=== PATIENT | male | born 1975 | race Caucasian/White ===

== ENCOUNTER → 2017-09-25 | Outpatient (CLI) | payer BC ==
[~2017-09-25] MED LIST: GADAVIST IV PRN; OXYC7.5T65 PO; [UNRECOGNIZED DRUG - OTHER] PO
--- NOTE | 2017-09-25 11:35 | DIAGNOSTIC IMAGING REPORT ---
L LOWER EXT NONJOINT COMBO CLINICAL HISTORY: 41 years-old Male presenting with L FOOT ACHILLES TENDON PAIN. TECHNIQUE: Multisequence, multiplanar MR imaging of the left ankle was performed before and after the administration of intravenous contrast. IV contrast: 9 mL of Gadavist. COMPARISON: Plain radiographs of the left foot from 2009. FINDINGS: Localizer images: Extensive susceptibility artifact arising from fixation hardware in the distal fibula and tibia. This limits diagnostic sensitivity of the exam. Bony edema noted at the posterior calcaneus at the insertion of the Achilles tendon. Fluid distends the retrocalcaneal bursa. Thickening and increased signal intensity of the Achilles tendon at the distal transitional fibers. Extensive infiltration of [place] fat pad. Fixation hardware in the distal tibia and fibula noted, limiting evaluation in this region. Ankle mortise grossly intact. Anterior and peroneal tendons intact. Trace fluid tracks along the tibialis posterior and flexor digitorum longus. An accessory muscle along the posterior lateral aspect of the flexor hallucis longus is consistent with a peroneocalcaneus internus accessory muscle. Anterior talofibular ligament is not visualized and may be disrupted likely on a chronic basis. The posterior talofibular ligament is grossly intact as is the calcaneofibular ligament. Anterior inferior tibiofibular ligament, interosseous membrane, and posterior inferior talofibular ligaments intact. Deltoid ligament grossly intact. No infiltration of the sinus tarsi. Plantar fascia intact. Normal muscle bulk and muscle signal intensity. IMPRESSION: 1. Findings consistent with retrocalcaneal bursitis with tendinosis/tendinitis of the Achilles tendon. No evidence of a complete Achilles tendon tear. 2. Post surgical changes of distal fibular and tibial fixation hardware, which results in degradation of image quality. 3. Tenosynovitis of the tibialis posterior and flexor digitorum longus suggested. 4. Incidental note made of peroneocalcaneus internus accessory muscle. Electronically signed by: Luis Miguel Salgado M.D. 09/25/2017 11:33 AM Dictated Date/Time: 09/25/2017 11:16 AM
== END | disposition home or self-care (01) ==
LOC: C.MRI 09:32
PROVIDERS: ATTEND Podiatrist Foot & Ankle Surgery
DX: M76.62 Achilles tendinitis, left leg (principal); S86.012A Strain of left Achilles tendon, initial encounter; X58.XXXA Exposure to other specified factors, initial encounter

== ENCOUNTER 2018-09-11 23:37 | Inpatient (IN) ==
[2018-09-11] MEDS ORDERED: SODIUM CHLORIDE 0.9% 1000ML 1,000 ML IV SCH (23:45)
[2018-09-11] MEDS ORDERED: ONDANSETRON INJ 2 MG/ML 2 ML VIAL IV STA (23:52)
[2018-09-11] MEDS ORDERED: MoRPHine SULFATE 4 MG/ML 1 ML CARP\\VIAL IV STA (23:52)
[2018-09-11] MEDS ORDERED: KETOROLAC 30 MG/ML VIAL IV STA (23:52)
[2018-09-11 23:58] LABS: Basophils # (auto) 0.03 K/uL (0-0.2); Basophils % (auto) 0.3 %; Eosinophils # (auto) 0.12 K/uL (0-0.5); Eosinophils % (auto) 1.3 %; Hematocrit (blood only) 46.2 % (42-52); Immature Granulocytes # (auto) 0.03 K/uL (0.00-0.02); Immature Granulocytes % (auto) 0.3 %; Lymphocytes # (auto) 1.61 K/uL (1.2-3.4); Lymphocytes % (auto) 17.3 %; Mean Corpuscular Hgb Conc 34.6 g/dL (32-36); Mean Corpuscular Volume 94.3 fL (80-100); Mean Platelet Volume 9.5 fL (7.4-10.4); Monocytes % (auto) 6.4 %; Neutrophils # (auto) 6.92 K/uL (1.4-6.5); Neutrophils % (auto) 74.4 %; Platelet Count 221 K/uL (130-400); RDW Coefficient of Variation 12.9 % (11.5-14.5); RDW Standard Deviation 44.3 fL (36.4-46.3); White Blood Count 9.31 K/uL (4.8-10.8)
[2018-09-12 00:20] LABS: BUN Creatinine Ratio 9.8 (10-20); Calcium 8.7 mg/dl (8.5-10.1); Creatinine Clr Calc Pharmacy 81.5 ml/min; Est GFR (African American) 72.3; Est GFR (Non-African American) 62.4; Potassium 3.6 mmol/L (3.5-5.1)
[2018-09-12 00:23] LABS: Albumin Globulin Ratio 1.1 (0.9-2); Bilirubin,Total 0.5 mg/dl (0.2-1); Globulin 3.7 gm/dl (2.5-4.0); Total Protein 7.7 gm/dl (6.4-8.2)
[2018-09-12 00:28] LABS: Appearance Urine Cloudy (Clear); Bacteria Urine Automated Negative (Negative); Bilirubin Urine Negative (Negative); Color Urine Yellow; Glucose Urine UA Negative (Negative); Ketones Urine Negative (Negative); Leukocyte Esterase Urine Negative (Negative); Nitrite Urine Negative (Negative); Protein Urine Trace (Negative); Specific Gravity Urine 1.023 (1.000-1.030); Urobilinogen Urine Negative (Negative); pH Urine 5.5 (4.5-7.5)
[2018-09-12 00:40] LABS: Calcium Oxalate Crystals Urine Present (None Prsent); Mucus Urine Present (None Prsent)
[2018-09-12 00:41] LABS: Cast Urine Automated 0 /lpf (0-5)
[2018-09-12] MEDS ORDERED: HYDROmorphone INJ 1 MG/ML SYRINGE IV STA (01:12)
[2018-09-12] MEDS ORDERED: SODIUM CHLORIDE 0.9% 1000ML 1,000 ML IV SCH (01:15)
--- NOTE | 2018-09-12 02:34 | History & Physical Report ---
Date of Service September 12, 2018 Assessment & Plan (1) Calculus, ureteral: 8.5mm stone at right UPJ. Patient afebrile, hemodynamically stable, pain moderately well controlled at present. No nausea. He does report some fevers and chills at home -Admit to medical floor -Morphine and Toradol PRN pain -Zofran PRN nausea -NSS at 125mL/hr x 2 liters -Ceftriaxone 1gm IV daily -Strain urine -NPO -Urology consultation - appreciate assistance with this case F/E/N - NSS at 125mL/hr x 2 liters, monitor electrolytes and replete as needed, NPO for now Ppx - ambulation, IVF, patient low risk for DVT Code - Full Dispo - Admit to medical floor History of Present Illness Chief Complaint: Flank pain Primary Care Provider: Dat Manzano III, Mr. 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 Pain started this AM, lower abdomen and right flank as well a right testicular pain. Became more severe this evening associated with nausea and 6-8 episodes of non-bloody/ non-bilious vomiting. Patient reports fevers and chills at home as well as dizziness. Pain is currently well controlled after Toradol, Morphine, Dilaudid. CT obtained in the ER with 8.5mm stone at the right UPJ with moderate hydronephrosis as well as a 3mm stone at UVJ with mild hydroureter. ER Course: Dilaudid 1mg, Toradol 30mg, Morphine 4mg, Zofran 4mg, NSS Allergies Allergy/AdvReac Type Severity Reaction Status Date / Time methotrexate AdvReac Unknown NAUSEA Verified 09/12/18 00:05 VOMITING DIARRHEA Sulfa (Sulfonamide AdvReac Unknown NAUSEA Verified 09/12/18 00:05 Antibiotics) VOMITING Home Medications Home Medications Medication Instructions Recorded Confirmed Type No Known Home Medications 09/12/18 09/12/18 History Past Med/Surg History Medical History Arthritis Surgical History History of arthroplasty of left ankle Family History Other Cancer Diabetes Heart disease Hypertension Kidney stones Social History Current Living Situation: Family Feels Safe at Home: Yes Smoking Status: Never smoker Hx Alcohol Use: No Hx Substance Use: No Communication Ability: Effective Review of Systems All systems reviewed & are unremarkable except as noted in HPI & below +fevers/chills +dizziness +SOB +decreased UOP Physical Exam 2 Vital Signs (Past 24 Hours): Last Vital Signs Temp 36.7 C 09/11/18 23:41 Pulse 56 L 09/12/18 02:15 Resp 18 09/12/18 02:15 BP 152/82 H 09/12/18 02:15 Pulse Ox 96 09/12/18 02:15 Physical Exam: General: patient resting comfortably, NAD, non-toxic in appearance, AA&O x 4 Skin: warm, dry, intact, no rashes or lesions HEENT: NC/AT, PERRL, EOMI, anicteric sclera, conjunctiva without injection, external ear normal to inspection and nontender, nares patent, moist mucus membranes, dentition intact, no oropharyngeal lesions, neck supple, trachea midline, no LAD, no thyromegaly, no JVD Heart: +S1/S2, regular, no m/r/g Lungs: equal air entry bilaterally, no rales/rhonchi/wheezes Abd: +BS, soft, non-distended, tenderness in RLQ and suprapubic region, right flank pain Ext: warm, 2+ pulses in UE/LE bilaterally, no clubbing/cyanosis or edema Neuro: nonfocal, patient AA&O x 4, speech intact, no facial droop, moving all extremities on command with equal strength 5/5 Results & Data Laboratory Results Lab Results 09/11/18 09/11/18 09/11/18 Range/Units 23:50 23:50 23:55 WBC 9.31 (4.8-10.8) K/uL RBC 4.90 (4.7-6.1) M/uL Hgb 16.0 (14.0-18.0) g/dL Hct 46.2 (42-52) % MCV 94.3 (80-100) fL MCH 32.7 (25-34) pg MCHC 34.6 (32-36) g/dL RDW Std Deviation 44.3 (36.4-46.3) fL RDW Coeff of Daryl 12.9 (11.5-14.5) % Plt Count 221 (130-400) K/uL MPV 9.5 (7.4-10.4) fL Immature Gran % (Auto) 0.3 % Neut % (Auto) 74.4 % Lymph % (Auto) 17.3 % [place] % (Auto) 6.4 % Eos % (Auto) 1.3 % Baso % (Auto) 0.3 % Immature Gran # (Auto) 0.03 H (0.00-0.02) K/uL Neut # (Auto) 6.92 H (1.4-6.5) K/uL Lymph # (Auto) 1.61 (1.2-3.4) K/uL [place] # (Auto) 0.60 H (0.11-0.59) K/uL Eos # (Auto) 0.12 (0-0.5) K/uL Baso # (Auto) 0.03 (0-0.2) K/uL Sodium 137 (136-145) mmol/L Potassium 3.6 (3.5-5.1) mmol/L Chloride 102 (98-107) mmol/L Carbon Dioxide 27 (21-32) mmol/L Anion Gap 8.0 (3-11) BUN 14 (7-18) mg/dl Creatinine 1.40 (0.6-1.4) mg/dl Est Cr Clr Drug Dosing 81.5 ml/min Est GFR ( Amer) 72.3 Est GFR (Non-Af Amer) 62.4 BUN/Creatinine Ratio 9.8 L (10-20) Glucose 116 H (70-99) mg/dl Calcium 8.7 (8.5-10.1) mg/dl Total Bilirubin 0.5 (0.2-1) mg/dl AST 25 (15-37) U/L ALT 37 (12-78) U/L Alkaline Phosphatase 85 (45-117) U/L Total Protein 7.7 (6.4-8.2) gm/dl Albumin 4.0 (3.4-5.0) gm/dl Globulin 3.7 (2.5-4.0) gm/dl Albumin/Globulin Ratio 1.1 (0.9-2) Urine Color Yellow Urine Appearance Cloudy H (Clear) Urine pH 5.5 (4.5-7.5) Ur Specific [place] 1.023 (1.000-1.030) Urine Protein Trace H (Negative) Urine Glucose (UA) Negative (Negative) Urine Ketones Negative (Negative) Urine Blood 3+ H (Negative) Urine Nitrite Negative (Negative) Urine Bilirubin Negative (Negative) Urine Urobilinogen Negative (Negative) Ur Leukocyte Esterase Negative (Negative) Urine WBC (Auto) 1-5 (0-5) /hpf Urine RBC (Auto) >30 H (0-4) /hpf U Hyaline Cast (Auto) 0 (0-5) /lpf U Epithel Cells (Auto) 5-10 H (0-5) /lpf Urine Bacteria (Auto) Negative (Negative) Urine Crystals Not Reportable Calcium Oxalate Crystal Present H (None Prsent) Urine Mucus Present H (None Prsent) Diagnostic Findings CT Abdomen - 8.5mm stone at right UPJ with moderate hydronephrosis. 3mm UVJ stone with mild hydroureter Code Status & VTE Plan Code Status FULL VTE Prophylaxis Plan VTE Prophylaxis will be ordered: No Critical Care Time Critical Care Time: No
[2018-09-12] MEDS ORDERED: ACETAMINOPHEN 325 MG TAB PO PRN (03:13)
[2018-09-12] MEDS ORDERED: ONDANSETRON INJ 2 MG/ML 2 ML VIAL IV PRN (03:13)
[2018-09-12] MEDS ORDERED: KETOROLAC TROMETHAMINE 15 MG/ML VIAL IV PRN (03:13)
[2018-09-12] MEDS: MoRPHine SULFATE 4 MG/ML 1 ML CARP\\VIAL IV PRN ×6 (03:27→22:34)
[2018-09-12] MEDS: SODIUM CHLORIDE 0.9% 1000ML 1,000 ML IV SCH ×2 (03:28→12:01)
[2018-09-12] MEDS: cefTRIAXone SODIUM 1,000 MG in SODIUM CHLOR 0.9% AD-VAN 50 ML IV SCH (04:34)
--- NOTE | 2018-09-12 04:52 | Emergency Department Note ---
Entered by Hortencia Christy acting as a scribe for Deb Vicente DO History of Present Illness General Chief complaint: Abdominal Pain Stated complaint: ABDOMEN SWELLING/PAIN,FEVER,CHILLS,VOMITING,CONSTI Time Seen by Provider: 09/11/18 23:44 Source: patient Limitations: no limitations History of Present Illness Onset (ago): hour(s) 2 Location: abdomen (right-sided) Pain Consistency: + constant Maximum Pain Intensity: 10 Quality: + other ("rapid onset") Relieved By: + none Exacerbated By: + none Associated symptoms: + denies other symptoms (lower extremity cramping or swelling), + fever/chills, + nausea/vomiting and + other (testicular pain) The patient is a 42 year old male who presents to the Emergency Room with complaints of "rapid onset," constant right-sided abdominal pain that began 2 hours ago. The patient complains of nausea/vomiting, fevers/chills, and testicular pain. He denies any lower extremity cramping or swelling. The patient notes a family history of kidney stones, stating that his father has had kidney stones in the past. He denies any modifying factors. He reports a past medical history of arthritis. Home Medications Home Medications Medication Instructions Recorded Confirmed Type No Known Home Medications 09/12/18 09/12/18 History Allergies Allergy/AdvReac Type Severity Reaction Status Date / Time methotrexate AdvReac Unknown NAUSEA Verified 09/12/18 00:05 VOMITING DIARRHEA Sulfa (Sulfonamide AdvReac Unknown NAUSEA Verified 09/12/18 00:05 Antibiotics) VOMITING Past Med/Surg History Medical History Arthritis Surgical History History of arthroplasty of left ankle Family History Other Cancer Diabetes Heart disease Hypertension Kidney stones Social History Current Living Situation: Family Other Information That Helps Us Care for You: No Feels Safe at Home: Yes Safety Concerns: Feels Safe At This Time Smoking Status: Current some day smoker Tobacco Type: cigarettes and cigars Do You Dip or Chew Tobacco: No Second Hand Exposure: No Tobacco Cessation Education Requested by Patient: No Hx Alcohol Use: Yes Alcohol type: hard liquor Alcohol Intake Frequency: 0-2 drinks per day Hx Substance Use: No Beliefs That Will Affect Care: None Preferred Language: [place] Communication Ability: Effective Dog Sitter Required: No Review of Systems See HPI for pertinent positives & negatives. and A total of 10 systems reviewed and were otherwise negative Physical Exam Vital Signs Vital Signs - 24 hr 09/11/18 23:41 09/12/18 00:16 09/12/18 01:08 Temperature 36.7 C Temperature Source Oral Sepsis Recent Fever Within 48 Hours No Sepsis Action Taken by Nursing No Action Required Pulse Rate 72 Pulse Rate [Right Brachial] Pulse Rate [Right Finger] 88 65 Pulse Rhythm [Right Brachial] Pulse Rhythm [Right Finger] Pulse Strength [Right Brachial] Pulse Strength [Right Finger] Respiratory Rate 18 18 18 Respiratory Effort / Characteristics Respiratory Depth Respiratory Pattern Blood Pressure 162/121 H Blood Pressure [Right Arm] 137/85 130/72 Blood Pressure Mean 134 Blood Pressure Mean [Right Arm] 102 91 Blood Pressure Position [Right Arm] Pulse Oximetry 97 95 96 Oxygen Delivery Method Room Air Room Air 09/12/18 01:20 09/12/18 02:15 09/12/18 02:55 Temperature Temperature Source Sepsis Recent Fever Within 48 Hours Sepsis Action Taken by Nursing Pulse Rate 53 L Pulse Rate [Right Brachial] Pulse Rate [Right Finger] 59 L 56 L Pulse Rhythm [Right Brachial] Pulse Rhythm [Right Finger] Pulse Strength [Right Brachial] Pulse Strength [Right Finger] Respiratory Rate 18 18 16 Respiratory Effort / Characteristics Respiratory Depth Respiratory Pattern Blood Pressure 147/88 H Blood Pressure [Right Arm] 110/64 152/82 H Blood Pressure Mean Blood Pressure Mean [Right Arm] 79 105 Blood Pressure Position [Right Arm] Pulse Oximetry 96 96 96 Oxygen Delivery Method Room Air Room Air Room Air 09/12/18 03:05 09/12/18 03:36 Temperature 36.5 C 36.5 C Temperature Source Oral Oral Sepsis Recent Fever Within 48 Hours Sepsis Action Taken by Nursing Pulse Rate Pulse Rate [Right Brachial] 59 L Pulse Rate [Right Finger] 58 L Pulse Rhythm [Right Brachial] Regular Pulse Rhythm [Right Finger] Regular Pulse Strength [Right Brachial] Normal Pulse Strength [Right Finger] Normal Respiratory Rate 16 12 Respiratory Effort / Characteristics Non-Labored Spontaneous Respiratory Depth Normal Normal Respiratory Pattern Regular Blood Pressure Blood Pressure [Right Arm] 167/92 H 167/92 H Blood Pressure Mean Blood Pressure Mean [Right Arm] 117 117 Blood Pressure Position [Right Arm] Lying Lying Pulse Oximetry 96 96 Oxygen Delivery Method Room Air Room Air General: Appears uncomfortable. HEENT: Head - normocephalic and atraumatic Pupils are equal, round, and reactive to light. Extraocular eye muscles are intact, and sclera are anicteric. Nose - moist nasal mucosa without discharge. Mouth - moist buccal mucosa. Oropharynx is nonerythematous and there is no tonsillar exudate or edema noted. Neck: Supple; no JVD, nuchal rigidity, cervical lymphadenopathy, or auscultated bruits. Heart: Regular rate and rhythm. There is a normal S1 and S2 with no murmurs, clicks, or gallops appreciated. Lungs: Clear to auscultation bilaterally with no wheezes, rales, or rhonchi. Abdomen: Soft, , nondistended, with good bowel sounds. There are no palpable pulsatile masses or hepatosplenomegaly. There is no guarding, rigidity, or rebound noted. Slight discomfort in the RLQ and suprapubic region of the abdomen with palpation.. Extremities: No evidence of cyanosis, clubbing, or edema. There are easily palpable peripheral pulses. Skin: warm and dry with good turgor and no rashes. Genitals: Slight discomfort with palpation of right testicle. The epididymis feels normal. Slightly enlarged lymph nodes in the right inguinal canal. Course 2348: Past medical records reviewed. The patient was evaluated in room A02, and a complete history and physical examination were performed. An IV lock was initiated and labs were drawn as above. 2352: Morphine Sulfate 4 mg IV, Zofran 4 mg IV, Toradol 30 mg IV. Urine specimen revealed hematuria. The patient will go for CT scan of the abdomen/ pelvis 0112: I checked on the patient. He complained of a lot of pain. I reviewed his results with him. 0112: Dilaudid 1 mg IV 0114: I talked with Dr. Mccauley, [facility] Urology, about the patient�s case. He recommended that the patient be admitted to the hospitalist. 0115: NSS 1000 mls @ 125 mls/hr IV 0204: I checked on the patient. He stated that he is more comfortable and rated his pain as a 4/10. 0126: I spoke with Johanna Holliday, [facility] hospitalist, about the patient�s case. She will further evaluate the patient. 0128: I spoke with the patient and updated him about the plan. Consultations Consultation #1: I talked with Dr. Mccauley, [facility], about the patient�s case. He recommended that the patient be admitted to the hospitalist. Time: 01:14 Consultation #2: I spoke with Johanna Holliday, [facility] hospitalist, about the patient�s case. She will further evaluate the patient. Time: 01:26 Administered Medications Sodium Chloride (Nss 1000ml) 1,000 mls @ 125 mls/hr IV .Q8H [place] Stop: 09/12/18 19:29 Last Admin: 09/12/18 03:28 Dose: 125 mls/hr Ceftriaxone Sodium 1,000 mg/ (Sodium Chloride) 50 mls @ 100 mls/hr IV Q24H [place] ; Protocol Stop: 09/17/18 03:59 Last Admin: 09/12/18 04:34 Dose: 100 mls/hr Morphine Sulfate (Morphine Sulfate) 4 mg IV Q2H PRN PRN Reason: pain Stop: 09/26/18 03:12 Last Admin: 09/12/18 03:27 Dose: 4 mg Ondansetron HCl (Zofran) 4 mg IV Q6H PRN PRN Reason: Nausea Stop: 10/12/18 03:12 Last Admin: 09/12/18 03:27 Dose: 4 mg Discontinued Medications Hydromorphone HCl (Dilaudid) 1 mg IV NOW STA Stop: 09/12/18 01:13 Last Admin: 09/12/18 01:16 Dose: 1 mg Sodium Chloride (Nss 1000ml) 1,000 mls @ 999 mls/hr IV .Q1H1M [place] Stop: 09/12/18 00:45 Last Infusion: 09/12/18 01:07 Dose: 0 mls/hr Admin: 09/12/18 00:02 Dose: 999 mls/hr Sodium Chloride (Nss 1000ml) 1,000 mls @ 125 mls/hr IV .Q8H [place] Stop: 10/12/18 01:14 Last Infusion: 09/12/18 02:16 Dose: 0 mls/hr Admin: 09/12/18 01:17 Dose: 125 mls/hr Ketorolac Tromethamine (Toradol) 30 mg IV NOW STA Stop: 09/11/18 23:53 Last Admin: 09/12/18 00:03 Dose: 30 mg Morphine Sulfate (Morphine Sulfate) 4 mg IV NOW STA Stop: 09/11/18 23:53 Last Admin: 09/12/18 00:03 Dose: 4 mg Ondansetron HCl (Zofran) 4 mg IV NOW STA Stop: 09/11/18 23:53 Last Admin: 09/12/18 00:02 Dose: 4 mg Medical Decision Making Differential Diagnosis The differential diagnosis includes: ureteral colic ,pyelonephritis, obstructive uropathy, testicular torsion, cystitis, and appendicitis Medical Records Attestation: I reviewed the patient's medical records. Home Medications Current Medication List: was personally reviewed by me Laboratory Data Attestation: I reviewed the patient's lab results. Result diagrams: 09/11/18 23:50 09/11/18 23:50 Lab Results 09/11/18 09/11/18 09/11/18 Range/Units 23:50 23:50 23:55 WBC 9.31 (4.8-10.8) K/uL RBC 4.90 (4.7-6.1) M/uL Hgb 16.0 (14.0-18.0) g/dL Hct 46.2 (42-52) % MCV 94.3 (80-100) fL MCH 32.7 (25-34) pg MCHC 34.6 (32-36) g/dL RDW Std Deviation 44.3 (36.4-46.3) fL RDW Coeff of Daryl 12.9 (11.5-14.5) % Plt Count 221 (130-400) K/uL MPV 9.5 (7.4-10.4) fL Immature Gran % (Auto) 0.3 % Neut % (Auto) 74.4 % Lymph % (Auto) 17.3 % [place] % (Auto) 6.4 % Eos % (Auto) 1.3 % Baso % (Auto) 0.3 % Immature Gran # (Auto) 0.03 H (0.00-0.02) K/uL Neut # (Auto) 6.92 H (1.4-6.5) K/uL Lymph # (Auto) 1.61 (1.2-3.4) K/uL [place] # (Auto) 0.60 H (0.11-0.59) K/uL Eos # (Auto) 0.12 (0-0.5) K/uL Baso # (Auto) 0.03 (0-0.2) K/uL Sodium 137 (136-145) mmol/L Potassium 3.6 (3.5-5.1) mmol/L Chloride 102 (98-107) mmol/L Carbon Dioxide 27 (21-32) mmol/L Anion Gap 8.0 (3-11) BUN 14 (7-18) mg/dl Creatinine 1.40 (0.6-1.4) mg/dl Est Cr Clr Drug Dosing 81.5 ml/min Est GFR ( Amer) 72.3 Est GFR (Non-Af Amer) 62.4 BUN/Creatinine Ratio 9.8 L (10-20) Glucose 116 H (70-99) mg/dl Calcium 8.7 (8.5-10.1) mg/dl Total Bilirubin 0.5 (0.2-1) mg/dl AST 25 (15-37) U/L ALT 37 (12-78) U/L Alkaline Phosphatase 85 (45-117) U/L Total Protein 7.7 (6.4-8.2) gm/dl Albumin 4.0 (3.4-5.0) gm/dl Globulin 3.7 (2.5-4.0) gm/dl Albumin/Globulin Ratio 1.1 (0.9-2) Urine Color Yellow Urine Appearance Cloudy H (Clear) Urine pH 5.5 (4.5-7.5) Ur Specific [place] 1.023 (1.000-1.030) Urine Protein Trace H (Negative) Urine Glucose (UA) Negative (Negative) Urine Ketones Negative (Negative) Urine Blood 3+ H (Negative) Urine Nitrite Negative (Negative) Urine Bilirubin Negative (Negative) Urine Urobilinogen Negative (Negative) Ur Leukocyte Esterase Negative (Negative) Urine WBC (Auto) 1-5 (0-5) /hpf Urine RBC (Auto) >30 H (0-4) /hpf U Hyaline Cast (Auto) 0 (0-5) /lpf U Epithel Cells (Auto) 5-10 H (0-5) /lpf Urine Bacteria (Auto) Negative (Negative) Urine Crystals Not Reportable Calcium Oxalate Crystal Present H (None Prsent) Urine Mucus Present H (None Prsent) Imaging Data Radiologist's Impression: Radiology results as stated below per my review and the radiologist's interpretation: CT ABDOMEN AND PELVIS Without Contrast: 8.5 mm stone at the right UPJ with moderate hydronephrosis. 3 mm right UVJ stone with mild hydroureter. Normal appendix. Radiologist: Titus Arriola MD Study ready at 00:52 and initial results at 00:59. Blood Pressure Blood Pressure Findings: Normal blood pressure Blood Pressure Disposition: did not require urgent referral MDM Narrative The patient is a 42 year old male who presents to the Emergency Room with complaints of "rapid onset," constant right-sided abdominal pain that began 2 hours ago. The patient's pain started in the right testicle and now it radiates to the right flank. He is afebrile and has no leukocytosis. Urinalysis it appears to show no signs of infection but does have hematuria. CT scan of the abdomen/ pelvis shows evidence of 2 ureteral stones one measuring 8.5 mm and the second measuring 3 mm. The patient required multiple doses of pain medication for comfort. I discussed the case with urology and internal medicine and they will evaluate for further management. Impression & Plan Calculus, ureteral Discharge Plan Visit Data *Final* Discharge Date/Time: 09/12/18 02:55 Chief Complaint: Abdominal Pain Stated Complaint: ABDOMEN SWELLING/PAIN,FEVER,CHILLS,VOMITING,CONSTI ED Provider: Deb Vicente Discharge Problem: Calculus, ureteral Patient Disposition: Admitted As Inpatient Discharge Instructions Interventions: ED Discharge Assessment Last Done: 09/12/18 02:55 The scribe's documentation has been prepared under my direction and personally reviewed by me in its entirety. I confirm that the note above accurately reflects all work, treatment, procedures, and medical decision making performed by me.
[2018-09-12 07:16] LABS: INR 1.1 (0.9-1.1); Prothrombin Time 10.7 Seconds (9.0-12.0)
--- NOTE | 2018-09-12 07:18 | CT Scan Report ---
ABDOMEN AND PELVIS CT WITHOUT CONTRAST CT DOSE: 928.42 mGy.cm HISTORY: Right flank pain. eval for kidney stone on R; eval R inguinal canal TECHNIQUE: Multiaxial CT images of the abdomen and pelvis were performed without contrast. A dose lo wering technique was utilized adhering to the principles of ALARA. COMPARISON STUDY: Abdomen and pelvis CT 06/02/2010. FINDINGS: The lung bases are clear. The unenhanced liver, spleen, adrenal glands, and pancreas are un remarkable. Normal gallbladder. No retroperitoneal lymphadenopathy. No bowel wall thickening or obstr uction. Normal appendix. Normal left kidney. There is mild right hydronephrosis secondary to an obstr ucting 4 mm stone at the right ureterovesical junction. There is also a 7 mm stone at the right renal pelvis which also be partially obstructing. Mild right perinephric edema. IMPRESSION: Mild right hydroureteronephrosis secondary to a 4 mm obstructing stone at the right ureterovesical ju nction. There is also a 7 mm stone at the right renal pelvis which may also result in partial obstruc tion. Electronically signed by: Humble Amaral M.D. 09/12/2018 7:17 AM
[2018-09-12 07:41] LABS: Calcium 8.2 mg/dl (8.5-10.1); Creatinine Clr Calc Pharmacy 71.4 ml/min; Est GFR (African American) 61.5; Est GFR (Non-African American) 53.1; Potassium 3.9 mmol/L (3.5-5.1)
[2018-09-12] MEDS ORDERED: HydrALAZINE HCL 20 MG/ML VIAL IV PRN (08:19)
--- NOTE | 2018-09-12 08:26 | Urology Consultation ---
Date of Consultation September 12, 2018 Assessment & Plan (1) Calculus, ureteral: 42y M with 4mm R UVJ and 7mm R UPJ stone with mild hydronephrosis, associated with N/V upon presentation. Pain controlled with IV morphine at the present. Some nausea, no vomiting since admission. Cr 1.4 on admission, 1.6 today. (baseline 1.3 in 2014). Discussed case with Dr. Lynch. Expects creatinine to improve with hydration. However, if Cr continues to climb tomorrow he will require ureteral stent. Please avoid NSAIDs Check KUB today Clears, advance as tolerated today. Recheck BMP in am NPO at midnight Continue IVFs and ceftriaxone. Please contact our service promptly if pt becomes febrile >101F, pain or vomiting uncontrolled. KUB: stones not visible, moderate bowel gas. May consider repeat tomorrow. History of Present Illness Reason for Consultation: Ureteral stone Requesting Physician: Ureteral stone Attending Physician: Carlyle Maldonado MD, PhD, [facility] History of Present Illness 42yo M presented to ED with complaints of abdominal pain, n/v x6-[address] abd/pelvis reveals 4mm R UVJ and 7mm R renal pelvic stone with mild hydronephrosis. UA +RBC, no leuks, no bacteria. UC&S not indicated. No leukocytosis, Cr 1.4. 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 Takes protein supplement drink daily, also with "fat burner" pill which may contribute to elevated baseline Cr for his age. Pt sitting up in bed at time of evaluation, does not appear to be toxic or in acute distress. Denies fevers, some chills. Some nausea overnight, no vomiting since admission. Denies gross hematuria, dysuria. Some urgency. Pain controlled with IV morphine. Currently NPO status with sips/chips. This is his first stone, father with Hx of stones. unsure of composition. Previous vasectomy, no other urologic intervention/concerns. Allergies Allergy/AdvReac Type Severity Reaction Status Date / Time methotrexate AdvReac Unknown NAUSEA Verified 09/12/18 00:05 VOMITING DIARRHEA Sulfa (Sulfonamide AdvReac Unknown NAUSEA Verified 09/12/18 00:05 Antibiotics) VOMITING Home Medications Home Medications Medication Instructions Recorded Confirmed Type No Known Home Medications 09/12/18 09/12/18 History Patient History Medical History Arthritis Surgical History History of arthroplasty of left ankle Family History Other Cancer Diabetes Heart disease Hypertension Kidney stones Social History Current Living Situation: Family Other Information That Helps Us Care for You: No Feels Safe at Home: Yes Safety Concerns: Feels Safe At This Time Smoking Status: Current some day smoker Tobacco Type: cigarettes and cigars Do You Dip or Chew Tobacco: No Second Hand Exposure: No Tobacco Cessation Education Requested by Patient: No Hx Alcohol Use: Yes Alcohol type: hard liquor Alcohol Intake Frequency: 0-2 drinks per day Hx Substance Use: No Beliefs That Will Affect Care: None Preferred Language: [place] Communication Ability: Effective Executive Vp Required: No Review of Systems Constitutional: no fever, no chills and no fatigue Physical Exam 2 Vital Signs (Past 24 Hours): Last Vital Signs Temp 36.8 C 09/12/18 07:05 Pulse 55 L 09/12/18 07:05 Resp 16 09/12/18 07:05 BP 149/92 H 09/12/18 07:05 Pulse Ox 94 09/12/18 07:05 Constitutional: well developed and well nourished; no acute distress Eyes: no nystagmus ENMT: Ears: no hearing impairment Neck: trachea midline Respiratory: no respiratory distress, no labored breathing and does not use accessory muscles Cardiovascular: Vessels: no JVD Gastrointestinal (Abdomen): Inspection/Auscultation: abdomen not distended and no abdominal edema Percussion/Palpation: no guarding Musculoskeletal: Head/Neck/Chest: normocephalic Skin: no rashes, warm and dry Neurologic: awake; not confused and not obtunded Psychiatric: Orientation: alert and oriented x 3 Results & Data Laboratory Results Laboratory Results - last 48 hr 09/11/18 09/11/18 09/11/18 23:50 23:50 23:55 WBC 9.31 RBC 4.90 Hgb 16.0 Hct 46.2 MCV 94.3 MCH 32.7 MCHC 34.6 RDW Std Deviation 44.3 RDW Coeff of Daryl 12.9 Plt Count 221 MPV 9.5 Immature Gran % (Auto) 0.3 Neut % (Auto) 74.4 Lymph % (Auto) 17.3 [place] % (Auto) 6.4 Eos % (Auto) 1.3 Baso % (Auto) 0.3 Immature Gran # (Auto) 0.03 H Neut # (Auto) 6.92 H Lymph # (Auto) 1.61 [place] # (Auto) 0.60 H Eos # (Auto) 0.12 Baso # (Auto) 0.03 PT INR Sodium 137 Potassium 3.6 Chloride 102 Carbon Dioxide 27 Anion Gap 8.0 BUN 14 Creatinine 1.40 Est Cr Clr Drug Dosing 81.5 Est GFR ( Amer) 72.3 Est GFR (Non-Af Amer) 62.4 BUN/Creatinine Ratio 9.8 L Glucose 116 H Calcium 8.7 Total Bilirubin 0.5 AST 25 ALT 37 Alkaline Phosphatase 85 Total Protein 7.7 Albumin 4.0 Globulin 3.7 Albumin/Globulin Ratio 1.1 Urine Color Yellow Urine Appearance Cloudy H Urine pH 5.5 Ur Specific [place] 1.023 Urine Protein Trace H Urine Glucose (UA) Negative Urine Ketones Negative Urine Blood 3+ H Urine Nitrite Negative Urine Bilirubin Negative Urine Urobilinogen Negative Ur Leukocyte Esterase Negative Urine WBC (Auto) 1-5 Urine RBC (Auto) >30 H U Hyaline Cast (Auto) 0 U Epithel Cells (Auto) 5-10 H Urine Bacteria (Auto) Negative Urine Crystals Not Reportable Calcium Oxalate Crystal Present H Urine Mucus Present H 09/12/18 09/12/18 06:47 06:47 WBC RBC Hgb Hct MCV MCH MCHC RDW Std Deviation RDW Coeff of Daryl Plt Count MPV Immature Gran % (Auto) Neut % (Auto) Lymph % (Auto) [place] % (Auto) Eos % (Auto) Baso % (Auto) Immature Gran # (Auto) Neut # (Auto) Lymph # (Auto) [place] # (Auto) Eos # (Auto) Baso # (Auto) PT 10.7 INR 1.1 Sodium 135 L Potassium 3.9 Chloride 104 Carbon Dioxide 26 Anion Gap 5.0 BUN 16 Creatinine 1.60 H Est Cr Clr Drug Dosing 71.4 Est GFR ( Amer) 61.5 Est GFR (Non-Af Amer) 53.1 BUN/Creatinine Ratio 10.0 Glucose 100 H Calcium 8.2 L Total Bilirubin AST ALT Alkaline Phosphatase Total Protein Albumin Globulin Albumin/Globulin Ratio Urine Color Urine Appearance Urine pH Ur Specific [place] Urine Protein Urine Glucose (UA) Urine Ketones Urine Blood Urine Nitrite Urine Bilirubin Urine Urobilinogen Ur Leukocyte Esterase Urine WBC (Auto) Urine RBC (Auto) U Hyaline Cast (Auto) U Epithel Cells (Auto) Urine Bacteria (Auto) Urine Crystals Calcium Oxalate Crystal Urine Mucus
--- NOTE | 2018-09-12 10:07 | XRay Report ---
XR KUB CLINICAL HISTORY: R UVJ and UPJ stone COMPARISON STUDY: CT scan dated 09/12/2018 FINDINGS: The renal shadows are largely obscured by overlying bowel gas and fecal material. The right UPJ calculus and right UVJ calculus described in the recent CT scan are not visible on conventional radiographic imaging. IMPRESSION: 1. No evidence of pathologic bowel dilatation 2. The right UPJ and right UVJ calculi described on the CT scan performed the same day are not visibl e on conventional radiographic imaging Electronically signed by: Obdulio Toth M.D. 09/12/2018 10:05 AM
[2018-09-12] MEDS ORDERED: SODIUM CHLORIDE 0.9% 1000ML 500 ML IV ONE (12:39)
--- NOTE | 2018-09-12 15:47 | Hospitalist Progress Note ---
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 Continue IV fluid, pain control, continue antibiotics, discussed with urology service, may need OR if patient has spiking fever, however otherwise planning for tomorrow for cystoscopy and stent if needed Possible AK I on CKD with elevated creatinine 1.6 from 1.4, will continue follow -up Ppx DVT , low risk for DVT, SCD while in bed, encourage up and walk and activity , Code - Full Subjective Generally doing okay, no fever today, however last night prior to admission was having fever Reported significant left upper quadrant deep tenderness, denies nausea vomiting , denies dysuria urgency and frequency Review of Systems Constitutional: Mild positive weakness, or fatigue Respiratory: no cough, sputum, wheezing, or dyspnea on exertion Cardiac: No chest pain, No orthopnea, No PND, No claudication, No palpitations , Abdomen: see HPI , No nausea, No vomiting, No diarrhea, No constipation, No GI bleeding Musculoskeletal: No joint pain, No muscle pain, No swelling, No calf pain, No problem reported : No dysuria, No urinary frequency, No incontinence, No hematuria Neurologic: No paralysis, No weakness, No numbness/tingling, No vertigo, No balance problems Psychiatric: No depression symptoms, No anhedonism, No anxiety, No insomnia, No substance abuse Heme: No abnormal bleeding/bruising, No clotting problems, No swollen lymph nodes, No night sweats Skin: No rash, No itch, No new/changing skin lesions, No color change, No bleeding Physical Exam 2 Vital Signs (Past 24 Hours): Last Vital Signs Temp 36.5 C 09/12/18 15:23 Pulse 51 L 09/12/18 15:23 Resp 18 09/12/18 15:23 BP 125/75 09/12/18 15:23 Pulse Ox 95 09/12/18 15:23 Physical Exam: General Appearance: WD/WN, no apparent distress, Eyes: normal inspection, PERRL, EOMI, sclerae normal ENT: normal ENT inspection, hearing grossly normal, pharynx normal Neck: supple, no adenopathy, thyroid normal, no JVD, no carotid bruits, trachea midline Respiratory/Chest: chest non-tender, normal breath sounds, no respiratory distress, no accessory muscle use, breath sounds, rales, wheezing Cardiovascular: regular rate, rhythm, no JVD, no murmur Abdomen: normal bowel sounds, Right CVA TD, soft, no organomegaly, Extremities: normal range of motion, non-tender, normal inspection, no pedal edema, no calf tenderness, normal capillary refill , pelvis stable, joint has no limited range of motion, capillary refill is normal, no cyanosis clubbing Neurologic/Psychiatric: miller helper distillery II-XII nml as tested, no motor/sensory deficits, alert, normal mood/affect, oriented x 3 Skin: normal color, warm/dry, no rash Lymphatic: no adenopathy
[2018-09-13] MEDS: MoRPHine SULFATE 4 MG/ML 1 ML CARP\\VIAL IV PRN ×4 (04:31→16:15)
[2018-09-13] MEDS: cefTRIAXone SODIUM 1,000 MG in SODIUM CHLOR 0.9% AD-VAN 50 ML IV SCH (04:31)
[2018-09-13 07:44] LABS: Basophils # (auto) 0.02 K/uL (0-0.2); Basophils % (auto) 0.2 %; Eosinophils # (auto) 0.19 K/uL (0-0.5); Hematocrit (blood only) 41.3 % (42-52); Hemoglobin 13.7 g/dL (14.0-18.0); Immature Granulocytes # (auto) 0.02 K/uL (0.00-0.02); Immature Granulocytes % (auto) 0.2 %; Lymphocytes # (auto) 1.62 K/uL (1.2-3.4); Mean Corpuscular Hgb Conc 33.2 g/dL (32-36); Mean Corpuscular Volume 97.2 fL (80-100); Mean Platelet Volume 9.7 fL (7.4-10.4); Monocytes # (auto) 0.77 K/uL (0.11-0.59); Monocytes % (auto) 8.1 %; Neutrophils % (auto) 72.5 %; Platelet Count 166 K/uL (130-400); RDW Standard Deviation 46.1 fL (36.4-46.3); Red Blood Count 4.25 M/uL (4.7-6.1); White Blood Count 9.52 K/uL (4.8-10.8)
[2018-09-13 08:22] LABS: BUN Creatinine Ratio 8.2 (10-20); Calcium 8.3 mg/dl (8.5-10.1); Creatinine Clr Calc Pharmacy 85.2 ml/min; Est GFR (African American) 76.3; Est GFR (Non-African American) 65.8; Magnesium 1.9 mg/dl (1.8-2.4); Phosphorus 2.9 mg/dl (2.5-4.9)
--- NOTE | 2018-09-13 13:38 | Urology Progress Note ---
Date of Service September 13, 2018 Assessment & Plan (1) Calculus, ureteral: Discussed options with patient, mother and son. Patient is hesitant to go home given his continued need for IV pain control. Given persistent renal colic requiring IV pain control x >24 hours in the setting of 7mm R UPJ and 4mm R UVJ, pt would like to proceed with R ureteral stent placement. Presently patient is not a candidate for ESWL as his stones are not visible on KUB. Will proceed to OR with Dr. Mccauley or Dr. Lynch for cysto, Right RPG, stent placement, possible ureteroscopy, laser litho, stone basketing depending on findings. Risks and benefits reviewed with patient OR notified. Surgery today. Will cover with IV Ciprofloxacin preop. Please see additional comments per my attending as indicated. Subjective 42y M with 4mm R UVJ and 7mm R UPJ stone with mild hydronephrosis, associated with N/V upon presentation. Pt continues to require IV morphine every 4 hours around the clock for pain control. Describes as deep, wrapping around R flank. Nausea controlled. VS stable, afebrile. Cr stablized today, 1. 34 (improved from 1.6) Denies difficulty urinating, dysuria or hematuria. Denies passage of any stones, continues to strain. Mother and son at bedside. Review of Systems All systems reviewed & are unremarkable except as noted in HPI & below Physical Exam 2 Vital Signs (Past 24 Hours): Last Vital Signs Temp 36.9 C 09/13/18 07:48 Pulse 71 09/13/18 07:48 Resp 18 09/13/18 07:48 BP 123/71 09/13/18 07:48 Pulse Ox 94 09/13/18 07:48 Physical Exam: A&0X3 RRR, BBS clear CV: no JVD, rate regular Abd soft, nontender Results & Data Laboratory Results Laboratory Results - last 48 hr 09/11/18 09/11/18 09/11/18 23:50 23:50 23:55 WBC 9.31 RBC 4.90 Hgb 16.0 Hct 46.2 MCV 94.3 MCH 32.7 MCHC 34.6 RDW Std Deviation 44.3 RDW Coeff of Daryl 12.9 Plt Count 221 MPV 9.5 Immature Gran % (Auto) 0.3 Neut % (Auto) 74.4 Lymph % (Auto) 17.3 [place] % (Auto) 6.4 Eos % (Auto) 1.3 Baso % (Auto) 0.3 Immature Gran # (Auto) 0.03 H Neut # (Auto) 6.92 H Lymph # (Auto) 1.61 [place] # (Auto) 0.60 H Eos # (Auto) 0.12 Baso # (Auto) 0.03 PT INR Sodium 137 Potassium 3.6 Chloride 102 Carbon Dioxide 27 Anion Gap 8.0 BUN 14 Creatinine 1.40 Est Cr Clr Drug Dosing 81.5 Est GFR ( Amer) 72.3 Est GFR (Non-Af Amer) 62.4 BUN/Creatinine Ratio 9.8 L Glucose 116 H Calcium 8.7 Phosphorus Magnesium Total Bilirubin 0.5 AST 25 ALT 37 Alkaline Phosphatase 85 Total Protein 7.7 Albumin 4.0 Globulin 3.7 Albumin/Globulin Ratio 1.1 Urine Color Yellow Urine Appearance Cloudy H Urine pH 5.5 Ur Specific [place] 1.023 Urine Protein Trace H Urine Glucose (UA) Negative Urine Ketones Negative Urine Blood 3+ H Urine Nitrite Negative Urine Bilirubin Negative Urine Urobilinogen Negative Ur Leukocyte Esterase Negative Urine WBC (Auto) 1-5 Urine RBC (Auto) >30 H U Hyaline Cast (Auto) 0 U Epithel Cells (Auto) 5-10 H Urine Bacteria (Auto) Negative Urine Crystals Not Reportable Calcium Oxalate Crystal Present H Urine Mucus Present H 09/12/18 09/12/18 09/13/18 06:47 06:47 07:14 WBC 9.52 RBC 4.25 L Hgb 13.7 L Hct 41.3 L MCV 97.2 MCH 32.2 MCHC 33.2 RDW Std Deviation 46.1 RDW Coeff of Daryl 13.0 Plt Count 166 MPV 9.7 Immature Gran % (Auto) 0.2 Neut % (Auto) 72.5 Lymph % (Auto) 17.0 [place] % (Auto) 8.1 Eos % (Auto) 2.0 Baso % (Auto) 0.2 Immature Gran # (Auto) 0.02 Neut # (Auto) 6.90 H Lymph # (Auto) 1.62 [place] # (Auto) 0.77 H Eos # (Auto) 0.19 Baso # (Auto) 0.02 PT 10.7 INR 1.1 Sodium 135 L Potassium 3.9 Chloride 104 Carbon Dioxide 26 Anion Gap 5.0 BUN 16 Creatinine 1.60 H Est Cr Clr Drug Dosing 71.4 Est GFR ( Amer) 61.5 Est GFR (Non-Af Amer) 53.1 BUN/Creatinine Ratio 10.0 Glucose 100 H Calcium 8.2 L Phosphorus Magnesium Total Bilirubin AST ALT Alkaline Phosphatase Total Protein Albumin Globulin Albumin/Globulin Ratio Urine Color Urine Appearance Urine pH Ur Specific [place] Urine Protein Urine Glucose (UA) Urine Ketones Urine Blood Urine Nitrite Urine Bilirubin Urine Urobilinogen Ur Leukocyte Esterase Urine WBC (Auto) Urine RBC (Auto) U Hyaline Cast (Auto) U Epithel Cells (Auto) Urine Bacteria (Auto) Urine Crystals Calcium Oxalate Crystal Urine Mucus 09/13/18 07:14 WBC RBC Hgb Hct MCV MCH MCHC RDW Std Deviation RDW Coeff of Daryl Plt Count MPV Immature Gran % (Auto) Neut % (Auto) Lymph % (Auto) [place] % (Auto) Eos % (Auto) Baso % (Auto) Immature Gran # (Auto) Neut # (Auto) Lymph # (Auto) [place] # (Auto) Eos # (Auto) Baso # (Auto) PT INR Sodium 138 Potassium 4.0 Chloride 104 Carbon Dioxide 27 Anion Gap 7.0 BUN 11 Creatinine 1.34 Est Cr Clr Drug Dosing 85.2 Est GFR ( Amer) 76.3 Est GFR (Non-Af Amer) 65.8 BUN/Creatinine Ratio 8.2 L Glucose 91 Calcium 8.3 L Phosphorus 2.9 Magnesium 1.9 Total Bilirubin AST ALT Alkaline Phosphatase Total Protein Albumin Globulin Albumin/Globulin Ratio Urine Color Urine Appearance Urine pH Ur Specific [place] Urine Protein Urine Glucose (UA) Urine Ketones Urine Blood Urine Nitrite Urine Bilirubin Urine Urobilinogen Ur Leukocyte Esterase Urine WBC (Auto) Urine RBC (Auto) U Hyaline Cast (Auto) U Epithel Cells (Auto) Urine Bacteria (Auto) Urine Crystals Calcium Oxalate Crystal Urine Mucus
[2018-09-13] MEDS ORDERED: CIPROFLOXACIN 400 MG/200 ML BAG IV SCH (14:00)
--- NOTE | 2018-09-13 14:15 | XRay Report ---
XR chest 1V portable CLINICAL HISTORY: preop preoperative evaluation COMPARISON STUDY: No previous studies for comparison. FINDINGS: Mild cardia megaly. Diaphragms are smooth. Lungs are considered clear. IMPRESSION: Mild cardiomegaly. Otherwise negative study. The above report was generated using voice recognition software. It may contain grammatical, syntax or spelling errors. Electronically signed by: Levon Reddy M.D. 09/13/2018 2:14 PM
--- NOTE | 2018-09-13 14:40 | Anesthesiology Consultation ---
Date of Service September 13, 2018 Assessment & Plan Chart Review Chart Review: Acceptable Risk for Surgery and Patient NOT seen in Pre Admission Testing Consults Requested none ASA [id number] Proposed Anesthesia Anesthesia Type: General Risk / Benefits Reviewed With: PT / POA / Parent / Guardian, Accepts Plan and Informed Consent Obtained Additional Comments: Pt denies any recent CP, SOB, GERD syptoms, n/v or recent lung infections. NPO Date Last Intake of Fluids: 09/12/18 Time Last Intake of Fluids: 23:00 Date Last Intake of Solids: 09/11/18 Time Last Intake of Solids: 17:30 History Surgery Operation Date: 09/13/18 17:00 Proposed Procedures p Cystoscopy Retrograde Pyelogram, Right Ureteral Stent Placement, Possible Uteroscopy, Possible Laser Lithotripsy, Possible Stone Basket Retrieval - Nehemias Mccauley MD Height/Weight Height: 1.88 m Weight: 94.2 kg Allergies Allergy/AdvReac Type Severity Reaction Status Date / Time methotrexate AdvReac Unknown NAUSEA Verified 09/12/18 00:05 VOMITING DIARRHEA Sulfa (Sulfonamide AdvReac Unknown NAUSEA Verified 09/12/18 00:05 Antibiotics) VOMITING Medications Home Medications Medication Instructions Recorded Confirmed Last Taken No Known Home Medications 09/12/18 09/12/18 Unknown Active Medications Generic Name Dose Route Start Last Admin Trade Name Freq PRN Reason Stop Dose Admin Ceftriaxone Sodium 1,000 mg/ 50 mls @ 100 mls/hr 09/12/18 04:00 09/13/18 05: 31 Sodium Chloride IV 09/17/18 03:59 Infused Q24H [place] Infusion Protocol Morphine Sulfate 4 mg 09/12/18 03:13 09/13/18 16:15 Morphine Sulfate IV 09/26/18 03:12 4 mg Q2H PRN Administration pain Ondansetron HCl 4 mg 09/12/18 03:13 09/12/18 03:27 Zofran IV 10/12/18 03:12 4 mg Q6H PRN Administration Nausea Past Medical History Medical History Arthritis Takes prednisone prn. Last use was about a month ago Past Family History Family History Other Cancer Diabetes Heart disease Hypertension Kidney stones Past Surgical History Surgical History History of arthroplasty of left ankle S/P rhinoplasty Past Anesthesia History No Hx of Anesthesia Complications History of PONV No Motion Sickness Screening History of Motion Sickness: No Social History Smoking Status: Current some day smoker tobacco type: cigars (On occasions) Do You Dip or Chew Tobacco: No Hx Alcohol Use: Yes Alcohol type: hard liquor alcohol intake frequency: 0-2 drinks per day Alcohol Intake Frequency Comment: Vodka Hx Substance Use: No substance use type: does not use Exercise / Class Metabolic Activity II 4-5 Yardwork/Stairs/Walk up hill Physical Exam Vital Signs Last Vital Signs Temp 37 C 09/13/18 15:14 Pulse 76 09/13/18 15:14 Resp 16 09/13/18 15:14 BP 127/74 09/13/18 15:14 Pulse Ox 97 09/13/18 15:14 ENMT Mouth: no TMJ abnormality and no TMJ clicking Thyromental Distance: > or= 3.5 Finger Breadths Mallampati Class: II Neck normal visual inspection; neck extension not limited Respiratory Auscultation: lungs clear to auscultation bilaterally Cardiovascular Rate/Rhythm: regular rate and regular rhythm Psychiatric Orientation: alert and oriented x 3 Testing Electrocardiogram Date: 09/13/18 Findings: + NSR @ (64) Chest X-Ray Date: 09/13/18 Findings: + NAD and + cardiomegaly (Mild) Laboratory Results 09/13/18 07:14 09/13/18 07:14 PT 10.7 Seconds (9.0-12.0) 09/12/18 06:47 INR 1.1 (0.9-1.1) 09/12/18 06:47 Urine Color Yellow 09/11/18 23:55 Urine Appearance Cloudy (Clear) H 09/11/18 23:55 Urine pH 5.5 (4.5-7.5) 09/11/18 23:55 Ur Specific [place] 1.023 (1.000-1.030) 09/11/18 23:55 Urine Protein Trace (Negative) H 09/11/18 23:55 Urine Glucose (UA) Negative (Negative) 09/11/18 23:55 Urine Ketones Negative (Negative) 09/11/18 23:55 Urine Nitrite Negative (Negative) 09/11/18 23:55 Ur Leukocyte Esterase Negative (Negative) 09/11/18 23:55 Urine WBC (Auto) 1-5 /hpf (0-5) 09/11/18 23:55 Urine RBC (Auto) >30 /hpf (0-4) H 09/11/18 23:55 U Hyaline Cast (Auto) 0 /lpf (0-5) 09/11/18 23:55 U Epithel Cells (Auto) 5-10 /lpf (0-5) H 09/11/18 23:55 Urine Bacteria (Auto) Negative (Negative) 09/11/18 23:55
--- NOTE | 2018-09-13 14:57 | Hospitalist Progress Note ---
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 Has been on IV fluid, pain control, continue antibiotics, discussed with urology service, they may plan procedure today Possible ABRIL on CKD with elevated creatinine 1.6 from 1.4, today's creatinine is improved, Ppx DVT , low risk for DVT, SCD while in bed, encourage up and walk and activity , Code - Full Subjective Generally doing okay, no fever today, no abd pain, denies nausea vomiting , denies dysuria urgency and frequency Review of Systems Constitutional: Mild positive weakness, or fatigue Respiratory: no cough, sputum, wheezing, or dyspnea on exertion Cardiac: No chest pain, No orthopnea, No PND, No claudication, No palpitations , Abdomen: see HPI , No nausea, No vomiting, No diarrhea, No constipation, No GI bleeding Musculoskeletal: No joint pain, No muscle pain, No swelling, No calf pain, No problem reported : No dysuria, No urinary frequency, No incontinence, No hematuria Neurologic: No paralysis, No weakness, No numbness/tingling, No vertigo, No balance problems Psychiatric: No depression symptoms, No anhedonism, No anxiety, No insomnia, No substance abuse Heme: No abnormal bleeding/bruising, No clotting problems, No swollen lymph nodes, No night sweats Skin: No rash, No itch, No new/changing skin lesions, No color change, No bleeding Physical Exam 2 Vital Signs (Past 24 Hours): Last Vital Signs Temp 36.9 C 09/13/18 07:48 Pulse 71 09/13/18 07:48 Resp 18 09/13/18 07:48 BP 123/71 09/13/18 07:48 Pulse Ox 94 09/13/18 07:48 Physical Exam: General Appearance: WD/WN, no apparent distress, Eyes: normal inspection, PERRL, EOMI, sclerae normal ENT: normal ENT inspection, hearing grossly normal, pharynx normal Neck: supple, no adenopathy, thyroid normal, no JVD, no carotid bruits, trachea midline Respiratory/Chest: chest non-tender, normal breath sounds, no respiratory distress, no accessory muscle use, breath sounds, rales, wheezing Cardiovascular: regular rate, rhythm, no JVD, no murmur Abdomen: normal bowel sounds, Right CVA mild TD, soft, no organomegaly, Extremities: normal range of motion, non-tender, normal inspection, no pedal edema, no calf tenderness, normal capillary refill , pelvis stable, joint has no limited range of motion, capillary refill is normal, no cyanosis clubbing Neurologic/Psychiatric: bell ringer II-XII nml as tested, no motor/sensory deficits, alert, normal mood/affect, oriented x 3 Skin: normal color, warm/dry, no rash Lymphatic: no adenopathy Results & Data Laboratory Results Laboratory Results - last 24 hr 09/13/18 09/13/18 07:14 07:14 WBC 9.52 RBC 4.25 L Hgb 13.7 L Hct 41.3 L MCV 97.2 MCH 32.2 MCHC 33.2 RDW Std Deviation 46.1 RDW Coeff of Daryl 13.0 Plt Count 166 MPV 9.7 Immature Gran % (Auto) 0.2 Neut % (Auto) 72.5 Lymph % (Auto) 17.0 [place] % (Auto) 8.1 Eos % (Auto) 2.0 Baso % (Auto) 0.2 Immature Gran # (Auto) 0.02 Neut # (Auto) 6.90 H Lymph # (Auto) 1.62 [place] # (Auto) 0.77 H Eos # (Auto) 0.19 Baso # (Auto) 0.02 Sodium 138 Potassium 4.0 Chloride 104 Carbon Dioxide 27 Anion Gap 7.0 BUN 11 Creatinine 1.34 Est Cr Clr Drug Dosing 85.2 Est GFR ( Amer) 76.3 Est GFR (Non-Af Amer) 65.8 BUN/Creatinine Ratio 8.2 L Glucose 91 Calcium 8.3 L Phosphorus 2.9 Magnesium 1.9
[2018-09-13] MEDS ORDERED: PROPOFOL IV EMULSION 10 MG/ML 20 ML VIAL IV ONE (18:20)
[2018-09-13] MEDS ORDERED: MIDAZOLAM HCL 1 MG/ML 2ML VIAL ONE (18:22)
[2018-09-13] MEDS ORDERED: fentaNYL citrate 100 MCG/2 ML VIAL ONE ×2 (18:22→19:21)
--- NOTE | 2018-09-13 18:26 | History & Physical Bridge Note ---
Date of Service September 13, 2018 History & Physical Bridge Note I have examined the patient, reviewed the History & Physical and in the interval since the performance of the History & Physical I have noted the following changes of clinical significance: no changes noted
[2018-09-13] MEDS ORDERED: IOTHALAMATE MEGLUMINE II 17.2% 250 ML VIAL ONE (18:31)
[2018-09-13] MEDS ORDERED: DEXAMETHASONE SOD INJ 4 MG/ML VIAL ONE (18:45)
[2018-09-13] MEDS ORDERED: ONDANSETRON INJ 2 MG/ML 2 ML VIAL ONE (18:45)
[2018-09-13] MEDS ORDERED: LIDOCAINE HCL 2% 2 ML VIAL/AMP(20MG/ML) INFIL ONE ×2 (18:51→19:00)
--- NOTE | 2018-09-13 19:35 | Post Operative Brief Note ---
Immediate Post Op Note v1 Date of Surgery September 13, 2018 Pre & Post Diagnosis Operation Date: 09/13/18 17:00 Pre-Op Diagnosis: Right Ureteral Stones Post-Op Diagnosis: Right Ureteral Stones Procedure Operation Date: 09/13/18 17:00 Actual Procedures p Cystoscopy, Right Flexible Ureteroscopy, Laser Lithotripsy, Right Ureteral Stent Placement(Right) - Nehemias Mccauley MD Surgeon Nehemias Mccauley MD Vinyl Cutter none Estimated Blood Loss 5 Findings See Below (fragile stone fragnmented w scope place ment at right uvj, stone proximally migrated to lower pole and fragile broke into 5 to 6 pieces)
[2018-09-13] MEDS ORDERED: MAGNESIUM HYDROXIDE SUSP 30 ML UDC PO ONE (19:39)
--- NOTE | 2018-09-13 19:50 | Fluoroscopy Report ---
FL KUB HISTORY: R CYSTO/LASER/STENT FLUOROSCOPY TIME: 23 seconds. FINDINGS: 4 fluoroscopic spot images were submitted for review. Images demonstrate a guidewire and li thotripsy extending into the right renal pelvis placed in a retrograde fashion. This is followed by p lacement of a right ureteral stent which appears in good position. IMPRESSION: Fluoroscopy provided for right ureteral stent placement which appears in good position. Electronically signed by: Humble Amaral M.D. 09/13/2018 7:48 PM
[2018-09-13] MEDS ORDERED: ATROPINE SULFATE 0.1 MG/ML 10ML SYR IV PRN (19:52)
[2018-09-13] MEDS ORDERED: ONDANSETRON INJ 2 MG/ML 2 ML VIAL IV PRN (19:52)
[2018-09-13] MEDS ORDERED: ePHEDrine sulfate 50 MG/ML AMP IV PRN (19:52)
[2018-09-13] MEDS ORDERED: fentaNYL citrate 100 MCG/2 ML VIAL IV PRN (19:52)
[2018-09-13] MEDS ORDERED: KETOROLAC 30 MG/ML VIAL IV ONE (19:53)
[2018-09-13] MEDS ORDERED: KETOROLAC 30 MG/ML VIAL ONE (19:56)
--- NOTE | 2018-09-13 20:20 | Anesthesiology Progress Note ---
Date of Service September 13, 2018 Anesthesia Post Procedure Vital Signs Vital Signs: Temp Pulse Pulse Resp BP BP Pulse Ox 09/13/18 20:14 58 L 16 121/62 93 09/13/18 20:05 68 18 115/64 95 09/13/18 19:55 56 L 14 107/62 99 09/13/18 19:46 36.3 C L 57 L 14 122/57 L 99 09/13/18 15:14 37 C 76 16 127/74 97 09/13/18 07:48 36.9 C 71 18 123/71 94 Pain Intensity Right Abdomen: Pain Intensity: 6 Notes Mental Status: alert / awake / arousable Patient Amnestic to Procedure: Yes Nausea / Vomiting: adequately controlled Pain: adequately controlled Airway Patency, RR, SpO2: stable & adequate BP & HR: stable & adequate Hydration State: stable & adequate Anesthetic Complications: no major complications apparent
[2018-09-13] MEDS: DOCUSATE SODIUM 100 MG CAP PO SCH (21:56)
--- NOTE | 2018-09-13 22:58 | Operative Report ---
DATE OF OPERATION: 09/13/2018 PREOPERATIVE DIAGNOSES: Distal ureteral stone and proximal ureteral stone. POSTOPERATIVE DIAGNOSES: Distal ureteral stone and proximal ureteral stone. PROCEDURE PERFORMED: Right ureteroscopy, laser lithotripsy, and right stent placement. PRESENTATION: The patient is a 42-year-old male with ongoing right-sided pain. The patient presents having had several days of pain, requiring narcotics and causing some constipation for possible stent placement and possible ureteroscopy. Because the stones were difficult to see on KUB, there was some concern about placing a stent that he would not be a good candidate for lithotripsy. So I told him I would attempt to do ureteroscopy if it was uncomplicated given the late hour and the possible difficulty of proximal ureteroscopy. The patient understood and we proceeded. DESCRIPTION OF THE PROCEDURE: The patient was taken to cystoscopy suite where general anesthesia was administered, was given Venodyne stockings, have been given preoperative antibiotics, placed in dorsal lithotomy position after general anesthesia had been administered and prepped and draped in usual sterile fashion. A 21-Ghanaian scope was passed per urethra. I was able to pass a Dual-Flex guidewire beyond those stones into the proximal ureter under fluoroscopy. The distal ureter clearly was edematous and there was no urine coming out of it. I was able to pass the semi-rigid ureteroscope into the distal ureter and it appeared that in passing it I must have fragmented the stone, because I did not see a fragment, but then it disappeared from view. After I removed the scope, I took a picture of the distal ureter and then went back into the ureter which had been relatively dilated because of the obstruction distally and went up into the UVJ. The proximal stone had obviously migrated back up into the kidney. Because of this, I removed the ureteroscope and passed a second guidewire through the ureteroscope prior to removing it completely into the proximal ureter under fluoroscopy and then I passed a digital flexible ureteroscope into the ureter. I found the stone in the lower pole of the kidney, which was somewhat difficult to get to, but I was able to get to it with a 200 micron fiber and fragmented into multiple pieces, but the pieces flew all over the place because it was very fragile stone. I clearly fragmented it into multiple small pieces that were 2-3 mm and I chased the stone around as best I could and stone fragments and not aware of how big the biggest fragment is but clearly broken into at least 5-7 fragments, possibly much more because the stone was quite soft. At the end of the procedure, there was some bleeding in the renal pelvis. I was having difficulty seeing so I removed the scope and placed a 6-Ghanaian 28-cm stent with a string at the end as opposed to a curl, hopefully for comfort. It was slightly longer than I wanted, but because the end was not at the ureteral orifices, but extended out of the ureteral orifice for about a centimeter. The patient's bladder was emptied. He was transferred to the recovery room in stable condition. I attest to the content of the Intraoperative Record and any orders documented therein. Any exception s are noted below.
[2018-09-14] MEDS: cefTRIAXone SODIUM 1,000 MG in SODIUM CHLOR 0.9% AD-VAN 50 ML IV SCH (04:42)
[2018-09-14 07:48] LABS: BUN Creatinine Ratio 15.2 (10-20); Creatinine Clr Calc Pharmacy 87.2 ml/min; Est GFR (African American) 78.4; Est GFR (Non-African American) 67.6; Potassium 4.5 mmol/L (3.5-5.1)
[2018-09-14 07:49] LABS: Calcium 8.6 mg/dl (8.5-10.1); Magnesium 2.2 mg/dl (1.8-2.4)
[2018-09-14] MEDS: DOCUSATE SODIUM 100 MG CAP PO SCH (08:26)
--- NOTE | 2018-09-14 08:35 | XRay Report ---
KUB CLINICAL HISTORY: post op r renal ureteroscopy COMPARISON STUDY: KUB and CT of the abdomen and pelvis September 12, 2018. FINDINGS: Right ureteral stent is in place. No urinary calculi are identified. The right ureteral kevin culus shown on CT of September 12, 2018 are not evident on this exam. IMPRESSION: Right ureteral stent in place. No urinary calculi identified by radiography. Electronically signed by: Casey Hobson M.D. 09/14/2018 8:33 AM
--- NOTE | 2018-09-14 09:25 | Urology Progress Note ---
Date of Service September 14, 2018 Assessment & Plan (1) Calculus, ureteral: POD #1 s/p cystoscopy, R ureteroscopy, Laser litho. Please see procedure notes for details. Pt doing well this morning. Tolerating PO diet, pain controlled without narcotics. Cr stable. Repeat KUB reveals R ureteral stent in good position, stone fragments not visible. Reviewed by Dr. Mccauley. Brief stone prevention strategies reviewed including increased water intake, lemonade therapy, avoiding sodium. Okay to D/C home from perspective. Recommend sending home with Cipro BID x3d, pyridium, flomax, and pain control. Plan for outpatient stent removal in 2 weeks. Thank you for allowing us to participate in the care of Mr. Vega. Subjective 42yo M POD #1 s/p cysto, R ureteroscopy, laser lithotripsy and stent placement. Pt doing well this AM, pain better controlled, with tramadol last evening. Has not required morphine since procedure. Tolerating PO diet. Denies n/v. Denies significant stent irritation. Having some dysuria with urination but not too bothersome. Physical Exam 2 Vital Signs (Past 24 Hours): Last Vital Signs Temp 36.4 C L 09/14/18 07:34 Pulse 58 L 09/14/18 07:34 Resp 17 09/14/18 07:34 BP 122/72 09/14/18 07:34 Pulse Ox 96 09/14/18 07:34 Physical Exam: A&Ox3 RRR CV: no JVD Abd soft, nontender psych: good judgement Results & Data Laboratory Results Laboratory Results - last 48 hr 09/13/18 09/13/18 09/14/18 07:14 07:14 06:58 WBC 9.52 RBC 4.25 L Hgb 13.7 L Hct 41.3 L MCV 97.2 MCH 32.2 MCHC 33.2 RDW Std Deviation 46.1 RDW Coeff of Daryl 13.0 Plt Count 166 MPV 9.7 Immature Gran % (Auto) 0.2 Neut % (Auto) 72.5 Lymph % (Auto) 17.0 [place] % (Auto) 8.1 Eos % (Auto) 2.0 Baso % (Auto) 0.2 Immature Gran # (Auto) 0.02 Neut # (Auto) 6.90 H Lymph # (Auto) 1.62 [place] # (Auto) 0.77 H Eos # (Auto) 0.19 Baso # (Auto) 0.02 Sodium 138 139 Potassium 4.0 4.5 Chloride 104 105 Carbon Dioxide 27 28 Anion Gap 7.0 5.0 BUN 11 20 H D Creatinine 1.34 1.31 Est Cr Clr Drug Dosing 85.2 87.2 Est GFR ( Amer) 76.3 78.4 Est GFR (Non-Af Amer) 65.8 67.6 BUN/Creatinine Ratio 8.2 L 15.2 Glucose 91 122 H Calcium 8.3 L 8.6 Phosphorus 2.9 Magnesium 1.9 2.2
--- NOTE | 2018-09-14 09:54 | Anesthesiology Progress Note ---
Date of Service September 14, 2018 Anesthesia Post Procedure Vital Signs Vital Signs: Temp Pulse Pulse Pulse Pulse Resp BP 09/14/18 07:34 36.4 C L 58 L 17 122/72 09/14/18 03:01 36.3 C L 56 L 14 127/75 09/13/18 23:42 36.5 C 60 14 134/77 09/13/18 22:37 36.5 C 65 18 09/13/18 21:37 70 16 09/13/18 21:10 61 18 09/13/18 20:40 36.5 C 59 L 16 09/13/18 20:14 58 L 16 09/13/18 20:05 68 18 09/13/18 19:55 56 L 14 09/13/18 19:46 36.3 C L 57 L 14 09/13/18 15:14 37 C 76 16 127/74 BP Pulse Ox 09/14/18 07:34 96 09/14/18 03:01 95 09/13/18 23:42 95 09/13/18 22:37 112/62 95 09/13/18 21:37 120/72 95 09/13/18 21:10 121/73 92 09/13/18 20:40 130/77 93 09/13/18 20:14 121/62 93 09/13/18 20:05 115/64 95 09/13/18 19:55 107/62 99 09/13/18 19:46 122/57 L 99 09/13/18 15:14 97 Pain Intensity Right Abdomen: Pain Intensity: 2 Notes Mental Status: alert / awake / arousable Patient Amnestic to Procedure: Yes Nausea / Vomiting: adequately controlled Pain: adequately controlled Airway Patency, RR, SpO2: stable & adequate BP & HR: stable & adequate Hydration State: stable & adequate Anesthetic Complications: no major complications apparent
--- NOTE | 2018-09-14 15:31 | Discharge Summary ---
Date of Service September 14, 2018 Admission HPI Per Admitting Provider Mr. 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 Pain started this AM, lower abdomen and right flank as well a right testicular pain. Became more severe this evening associated with nausea and 6-8 episodes of non-bloody/ non-bilious vomiting. Patient reports fevers and chills at home as well as dizziness. Pain is currently well controlled after Toradol, Morphine, Dilaudid. CT obtained in the ER with 8.5mm stone at the right UPJ with moderate hydronephrosis as well as a 3mm stone at UVJ with mild hydroureter. ER Course: Dilaudid 1mg, Toradol 30mg, Morphine 4mg, Zofran 4mg, NSS Principal Diagnosis no Discharge Data Allergies Allergy/AdvReac Type Severity Reaction Status Date / Time methotrexate AdvReac Unknown NAUSEA Verified 09/12/18 00:05 VOMITING DIARRHEA Sulfa (Sulfonamide AdvReac Unknown NAUSEA Verified 09/12/18 00:05 Antibiotics) VOMITING Consultations 09/12/18 02:17 ED Decision to Admit Stat 09/12/18 03:13 Consult Urology Routine Procedures Performed Operation Date: 09/13/18 17:00 Actual Procedures p Cystoscopy, Right Flexible Uteroscopy, Laser Lithotripsy, Right Ureteral Stent Placement(Right) - Nehemias Mccauley MD Ordered Studies 09/12/18 00:25 CT abd pelvis wo con Urgent 09/13/18 16:00 FL KUB Routine Hospital Course (1) Calculus, ureteral: 42yo male with 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 Has been on IV fluid, pain control, continue antibiotics, discussed with urology service, ureter Calculus POD #1 s/p cystoscopy, R ureteroscopy, Laser litho. Doing well, need to follow up with urologist and follow up of the stone prevention strategies such as increased water intake, lemonade therapy, avoiding sodium, need to follow up with urologist as outpatient for stent removal in 2 weeks. sending you home with Cipro BID x3d, pyridium, flomax, you can use naproxen as needed for pain control, take naproxen as needed after snack Possible ABRIL on CKD with elevated creatinine, is improving Ppx DVT , low risk for DVT, SCD while in bed, encourage up and walk and activity , Code - Full Subjective upon discharge: no fever today, no abd pain, denies nausea vomiting , denies dysuria urgency and frequency Review of Systems upon discharge Constitutional: Mild positive weakness, or fatigue Respiratory: no cough, sputum, wheezing, or dyspnea on exertion Cardiac: No chest pain, No orthopnea, No PND, No claudication, No palpitations , Abdomen: see HPI , No nausea, No vomiting, No diarrhea, No constipation, No GI bleeding Musculoskeletal: No joint pain, No muscle pain, No swelling, No calf pain, No problem reported : No dysuria, No urinary frequency, No incontinence, No hematuria Neurologic: No paralysis, No weakness, No numbness/tingling, No vertigo, No balance problems Psychiatric: No depression symptoms, No anhedonism, No anxiety, No insomnia, No substance abuse Heme: No abnormal bleeding/bruising, No clotting problems, No swollen lymph nodes, No night sweats Skin: No rash, No itch, No new/changing skin lesions, No color change, No bleeding Physical Exam upon discharge General Appearance: WD/WN, no apparent distress, Eyes: normal inspection, PERRL, EOMI, sclerae normal ENT: normal ENT inspection, hearing grossly normal, pharynx normal Neck: supple, no adenopathy, thyroid normal, no JVD, no carotid bruits, trachea midline Respiratory/Chest: chest non-tender, normal breath sounds, no respiratory distress, no accessory muscle use, breath sounds, rales, wheezing Cardiovascular: regular rate, rhythm, no JVD, no murmur Abdomen: normal bowel sounds, Right CVA mild TD, soft, no organomegaly, Extremities: normal range of motion, non-tender, normal inspection, no pedal edema, no calf tenderness, normal capillary refill , pelvis stable, joint has no limited range of motion, capillary refill is normal, no cyanosis clubbing Neurologic/Psychiatric: surgical asst II-XII nml as tested, no motor/sensory deficits, alert, normal mood/affect, oriented x 3 Skin: normal color, warm/dry, no rash Lymphatic: no adenopathy Lab data upon discharge Laboratory Results - last 24 hr 09/14/18 06:58 Sodium 139 Potassium 4.5 Chloride 105 Carbon Dioxide 28 Anion Gap 5.0 BUN 20 H D Creatinine 1.31 Est Cr Clr Drug Dosing 87.2 Est GFR ( Amer) 78.4 Est GFR (Non-Af Amer) 67.6 BUN/Creatinine Ratio 15.2 Glucose 122 H Calcium 8.6 Magnesium 2.2 Total Time Total Time Spent Total Time Spent (In Minutes): 35 Total Time Includes: Examination of the Patient, Discharge Planning, Medication Reconciliation and Communication With Other Providers Discharge Plan Discharge Items Patient Disposition: Home - Self-Care Reason For Visit: URETEROLITHIASIS Discharge Diagnosis: ureter Calculus POD #1 s/p cystoscopy, R ureteroscopy, Laser litho. Condition: Fair Discharge Goals: Decrease discomfort Activity: Resume your previous activity Non-emergency contact: Primary Care Provider and Urologist Call non-emergency contact if: you have any medication questions Diet: Regular Addtl Provider Instructions: you have ureter Calculus POD #1 s/p cystoscopy, R ureteroscopy, Laser litho. please follow up with urologist and follow up of the stone prevention strategies such as increased water intake, lemonade therapy, avoiding sodium, you need to follow up with urologist as outpatient for stent removal in 2 weeks. I am sending you home with Cipro BID x3d, pyridium, flomax, you can use naproxen as needed for pain control, take naproxen as needed after snack you need to follow up with your primary care physician in 1 week, - take medication as instructed, never overdose or any misuse, or take with alcohol, because misuse of medicine may cause organ damage or , call me , or your primary care physician if have questions of discharge medicaitons. - call your primary care physician, or go to local emergency room if has any fever/chill, chest pain, shortness of breathing, nausea/vomiting/abdominal pain , facial droop/slurry speech/local weakness, or if has any questions. - fall precaution - diet as instructed - you need to follow up with your subspecialist, such as Urologist Prescriptions: New ciprofloxacin HCl 500 mg tablet 500 mg PO BID 3 Days Qty: 6 RF: 0 phenazopyridine [Pyridium] 100 mg tablet 100 mg PO TID PRN (Reason: dysuria) 3 Days Qty: 6 RF: 0 tamsulosin [Flomax] 0.4 mg capsule 0.4 mg PO DAILY 7 Days Qty: 7 RF: 0 naproxen 500 mg tablet 500 mg PO BID PRN (Reason: pain) 3 Days Qty: 7 RF: 0 No Action No Known Home Medications RF: 0 Stand-Alone Forms: [facility] Discharge Orders: Discharge Order (Routine); Ordered 09/14/18 Ordered By: Carlyle Maldonado Admission Data Admit Date/Time: 09/12/18 02:33 Attending Provider: Carlyle Maldonado Admit Provider: Mag Holliday Primary Care Provider: Dat Manzano III Other Providers: Mag Holliday ; Nehemias Mccauley ; Dominic Pillai ; Molina Lynch I. ; Ankit Hubbard ; Anay Cottrell ; Tam Santos II ; Kathy Walton Service: Surgical Services Other Interventions: Discharge Summary Assessment (RN) Last Done: 09/14/18 11:09 DC Date/Time DO NOT enter until pt leaves facility: 09/14/18 11:31
== END 2018-09-14 11:31 | disposition home or self-care (01) ==
LOC: ED 23:37 → 3E 09-12 02:33 → SUATTDRO 09-12 02:33 → 3E 09-12 02:55